=== PATIENT | female | born 1995 ===

== ENCOUNTER → 2022-01-13 16:32 | Outpatient (CLI) | payer SELFPAY ==
[2022-01-13 17:49] VITALS: BP 114/76
== END | disposition home or self-care (01) ==
LOC: TRG 16:32 → APU 16:33
PROVIDERS: ATTEND Obstetrics & Gynecology Gynecology
DX: Z34.93 Encounter for supervision of normal pregnancy, unspecified, third trimester (principal); Z3A.40 40 weeks gestation of pregnancy
CPT/HCPCS: 59025

== ENCOUNTER 2022-01-13 21:04 | Inpatient (IN) | payer SELFPAY ==
[2022-01-13] MEDS ORDERED: METHYLERGONOVINE MALEATE 0.2 MG/ML VIAL IM PRN (23:17)
[2022-01-13] MEDS ORDERED: LIDOCAINE (2%) 20 MG/1 ML VIAL 20 ML MDV INFILTRATI ONE (23:17)
[2022-01-13] MEDS ORDERED: ACETAMINOPHEN 325 MG TAB PO PRN (23:17)
[2022-01-13] MEDS ORDERED: CARBOPROST TROMETHAMINE 250 MCG/1 ML INJ IM PRN (23:17)
[2022-01-13] MEDS ORDERED: miSOPROStol 200 MCG TAB PR PRN (23:17)
[2022-01-13] MEDS ORDERED: fentaNYL 100 MCG/2 ML INJ IV PRN (23:17)
[2022-01-13] MEDS ORDERED: LOPERAMIDE 2 MG CAP PO PRN (23:17)
[2022-01-13] MEDS ORDERED: ePHEDrine SULFATE 50 MG/1 ML INJ IV PRN (23:17)
[2022-01-13] MEDS ORDERED: TERBUTALINE 1 MG/1 ML INJ SUB-Q PRN (23:17)
[2022-01-13] MEDS ORDERED: ONDANSETRON 4 MG/2 ML INJ IV PRN (23:17)
[2022-01-13] MEDS ORDERED: MINERAL OIL 30 ML ORAL LIQD PO PRN (23:17)
[2022-01-13] MEDS ORDERED: BUTORPHANOL 2 MG/1 ML INJ IV PRN (23:17)
[2022-01-13] MEDS ORDERED: OXYTOCIN 10 UNIT/1 ML INJ IM PRN (23:17)
[2022-01-13] MEDS ORDERED: OXYTOCIN DRIP 30 UNITS/500 ML BAG IV SCH ×2 (23:45)
--- NOTE | 2022-01-14 00:23 | History and Physical Report ---
History of Present Illness Date of examination: 01/13/22 Date of admission: 01/13/22 23:18 Chief complaint: Contractions History of present illness: 26-year-old at 40-1/7 weeks gestation presents to OB triage reporting regular and painful contractions occurring every 3 minutes. There is no vaginal bleeding. There is no leaking of fluid. There is good movement. Cervix was noted to be 5 cm dilated. The patient has a history of a previous delivery. She desires trial of labor after (TOLAC) to attempt a vaginal after (). According to the medical record, that delivery was performed in [place], and it appears that text from the operative report was reviewed and confirms a Pfannenstiel skin incision. Formal operative report is unavailable at this time. According to the medical record, it appears that the previous delivery was performed secondary to distress and preeclampsia with severe features. As such, it is reasonable to presume that the previous delivery was likely a low transverse uterine scar per guidelines from ACOG Practice Bulletin No. 205 (ACOG Practice Bulletin No. 205: Vaginal After Delivery. Obstetrics & Gynecology: May 2018 - Volume 133 - Issue 2 - p [id number]). The patient was counseled in great detail in accordance with the guidelines contained within ACOG Practice Bulletin No. 205 with regards to the risks, alternatives, and benefits of TOLAC. She understands the risk of uterine rupture, maternal , hemorrhage, possibility of emergent delivery, possibility of hysterectomy, and possibility of / . Voicing understanding of all this, she wishes to proceed with TOLAC and signed consent f orms. The patient is admitted to labor and delivery for TOLAC. Past History Past Surgical History: section Family/Genetic History: none Social history: no significant social history - Obstetrical History Expected Date of Delivery: 01/12/22 Actual Gestation: 40 Week(s) 2 Day(s) : 2 Para: 1 Hx # Term Pregnancies: 1 Number of Pregnancies: 0 Spontaneous Abortions: 0 Induced : 1 Number of Living Children: 1 Medications and Allergies Allergies Allergy/AdvReac Type Severity Reaction Status Date / Time No Known Allergies Allergy Verified 01/13/22 23:30 Active Meds: Active Medications Acetaminophen (Acetaminophen 325 Mg Tab) 650 mg PO Q4H PRN PRN Reason: Pain, Mild (1-3) Butorphanol Tartrate (Butorphanol 2 Mg/1 Ml Inj) 2 mg IV Q2H PRN PRN Reason: Pain , Severe (7-10) Carboprost Tromethamine (Carboprost Tromethamine 250 Mcg/1 Ml Inj) 250 mcg IM ONCE PRN PRN Reason: Uterine Bleeding Ephedrine Sulfate (Ephedrine Sulfate 50 Mg/1 Ml Inj) 10 mg IV Q2M PRN PRN Reason: Hypotension Fentanyl (Fentanyl 100 Mcg/2 Ml Inj) 100 mcg IV Q2H PRN PRN Reason: Pain,Severe (7-10) LABOR PAIN Oxytocin/Sodium Chloride (Pitocin/Ns 30 Unit/500ml) 30 units in 500 mls @ 2 mls/hr IV TITR AWA; Protocol Lactated Ringer's (Lactated Ringers) 1,000 mls @ 125 mls/hr IV DIRECT AWA Oxytocin/Sodium Chloride (Pitocin/Ns 30 Unit/500ml) 30 units in 500 mls @ 40 mls/hr IV TITR AWA; Protocol Loperamide HCl (Loperamide 2 Mg Cap) 2 mg PO ONCE PRN PRN Reason: give with Hemabate Methylergonovine Maleate (Methylergonovine Maleate 0.2 Mg/Ml Vial) 0.2 mg IM ONCE PRN PRN Reason: Uterine Bleeding Mineral Oil (Mineral Oil 30 Ml Oral Liqd) 30 ml PO QHS PRN PRN Reason: Constipation Misoprostol (Misoprostol 200 Mcg Tab) 800 mcg MN ONCE PRN PRN Reason: Uterine Bleeding Ondansetron HCl (Ondansetron 4 Mg/2 Ml Inj) 4 mg IV Q8H PRN PRN Reason: Nausea And Vomiting Oxytocin (Oxytocin 10 Unit/1 Ml Inj) 10 unit IM ONCE PRN PRN Reason: Uterine Bleeding Terbutaline Sulfate (Terbutaline 1 Mg/1 Ml Inj) 0.25 mg SUB-Q ONCE PRN PRN Reason: Hyperstimulation/Hypertonicity - Vital Signs Vital signs: Vital Signs Temp Resp Pulse Ox 99.9 F H 16 98 01/13/22 21:47 01/13/22 21:47 01/13/22 21:47 Temp Pulse Resp BP Pulse Ox 99.9 F H 92 H 17 109/72 97 01/13/22 21:47 01/14/22 00:17 01/13/22 23:59 01/13/22 23:58 01/14/22 00:17 - Physical Exam Breasts: Positive: normal Cardiovascular: Regular rate Lungs: Positive: Normal air movement Abdomen: Positive: soft Genitourinary (Female): Positive: normal external genitalia, normal perenium Vulva: both: normal Vagina: Positive: normal moisture Uterus: Positive: enlarged Adnexa: both: normal Anus/Rectum: Positive: normal perianal skin Extremities: Positive: normal Deep Tendon Reflex Grade: Normal +2 - Obstetrical FHR: category 1 Uterine Contraction Monitor Mode: External Cervical Dilatation: 5 Cervical Effacement Percentage: 70 station: -2 Uterine Contraction Frequency (min): 3 Uterine Contraction Pattern: Regular Results Result Diagrams: 01/13/22 01:02 All other labs normal. Ultrasound: report reviewed, image reviewed, other (OB Ultrasound Limited= SLIUP. Vertex. Anterior placenta. EFW= 2972 g (7th %-ile). GLENN= 4.2 cm.) Assessment and Plan - Patient Problems (1) 40 weeks gestation of Current Visit: Yes Status: Acute Plan to address problem: care is up-to-date at [facility]. The patient is GBS negative. (2) Postmaturity , 40-42 weeks gestation Current Visit: Yes Status: Acute Plan to address problem: The patient is admitted to labor and delivery for TOLAC. (3) Previous delivery affecting , antepartum Current Visit: Yes Status: Acute Plan to address problem: The patient has a history of a previous delivery. She desires trial of labor after (TOLAC) to attempt a vaginal after (). According to the medical record, that delivery was performed in [place], and it appears that text from the operative report was reviewed and confirms a Pfannenstiel skin incision. Formal operative report is unavailable at this time. According to the medical record, it appears that the previous delivery was performed secondary to distress and preeclampsia with severe features. As such, it is reasonable to presume that the previous delivery was likely a low transverse uterine scar per guidelines from ACOG Practice Bulletin No. 205 (ACOG Practice Bulletin No. 205: Vaginal After Delivery. Obstetrics & Gynecology: May 2018 - Volume 133 - Issue 2 - p [id number]). (4) Patient desires vaginal after section () Current Visit: Yes Status: Acute Plan to address problem: The patient was counseled in great detail in accordance with the guidelines contained within ACOG Practice Bulletin No. 205 with regards to the risks, alternatives, and benefits of TOLAC. She understands the risk of uterine rupture, maternal , hemorrhage, possibility of emergent delivery, possibility of hysterectomy, and possibility of / . Voicing understanding of all this, she wishes to proceed with TOLAC and signed consent forms. (5) IUGR (intrauterine growth restriction) Current Visit: Yes Status: Acute Plan to address problem: Estimated weight is in the 7th percentile. The patient is admitted to labor and delivery for TOLAC. (6) Oligohydramnios in [place] in third trimester Current Visit: Yes Status: Acute Plan to address problem: Amniotic fluid index is 4.2 cm. This fulfills the contemporary criteria for oligohydramnios. The patient is admitted to labor and delivery for TOLAC. (7) Active labor at term Current Visit: Yes Status: Acute Plan to address problem: The patient is admitted to labor and delivery for TOLAC.
--- NOTE | 2022-01-14 00:28 | Ultrasound Report ---
ULTRASOUND OBSTETRIC INDICATION / CLINICAL INFORMATION: EFW, GLENN, POSITION, PLACENTA LOCATION. - Clinical Gestational Age (GA) in weeks, days: 40, 1 TECHNIQUE: Transabdominal. COMPARISON: None available. FINDINGS: Single intrauterine . Biparietal Diameter = 9.0 cm = 36, 2 weeks, days Head Circumference = 32.9 cm = 37, 2 weeks, days Abdominal Circumference = 32.2 cm = 36, 1 weeks, days Femur Length = 7.3 cm = 37, 2 weeks, days Average Ultrasound Age (AUA) = 36, 5 weeks, days Heart Rate: 133 beats per minute. Estimated Weight in grams (if calculated): 2972 Estimated Weight Growth Percentile (if calculated): Position: cephalic. Cervix: Not well evaluated Placenta: anterior and free of the os. Amniotic Fluid Volume: normal Amniotic Fluid Index (GLENN) in cm (if calculated): Mildly decreased measuring 4.2 cm.. Maternal Adnexa: No significant abnormality. IMPRESSION: 1. Single, living intrauterine with estimated sonographic age of 36 weeks, 5 days. Of note, this is discordant from the clinical age of 40 weeks 1 day. 2. No acute sonographic process. 3. Low amniotic fluid index , which may be secondary to near term gestational age. True mild oligohyd ramnios cannot be excluded. 4. Cephalic position and intact anterior placenta. Signer Name: Jayme Fitch MD Signed: 01/14/2022 12:24 AM Workstation Name: [id number]
[2022-01-14 01:14] LABS: Hematocrit 38.6 % (30.3-42.9); Hemoglobin 12.9 gm/dl (10.1-14.3); Mean Corpuscular HGB Conc 33 % (30-34); Mean Corpuscular Volume 87 fl (79-97); Platelet Count 244 K/mm3 (140-440); Red Blood Count 4.45 M/mm3 (3.65-5.03); Red Cell Distribution Width 13.6 % (13.2-15.2)
[2022-01-14] MEDS ORDERED: fentaNYL-BUPIV 2 MCG/ML-0.125% 200 MCG/100 ML BAG EPIDURAL SCH (02:42)
[2022-01-14] MEDS ORDERED: NALOXONE 0.4 MG/1 ML INJ IV PRN (02:42)
[2022-01-14] MEDS ORDERED: ePHEDrine SULFATE 50 MG/1 ML INJ IV PRN (02:42)
--- NOTE | 2022-01-14 02:44 | Anesthesia Day of Surgery ---
Anesthesia Day of Surgery - Day of Surgery Patient Examined: Yes Patient H&P Reviewed: Yes Patient is NPO: Yes Beta Blockers: No Cardiac Clearance: No Pulmonary Clearance: No Chuck's Test: N/A
--- NOTE | 2022-01-14 02:44 | Anesthesia Consultation ---
Anesthesia Consult and Med Hx Date of service: 01/14/22 - Airway Anesthetic Teeth Evaluation: Good ROM Head & Neck: Adequate Mental/Hyoid Distance: Adequate Mallampati Class: Class II Intubation Access Assessment: Probably Good - Pulmonary Exam CTA: Yes - Cardiac Exam Cardiac Exam: RRR - Pre-Operative Health Status ASA Pre-Surgery Classification: ASA2 Proposed Anesthetic Plan: Epidural - Pulmonary Hx Smoking: No Hx Asthma: No Hx Respiratory Symptoms: No SOB: No COPD: No Home Oxygen Therapy: No Hx Pneumonia: No Hx Sleep Apnea: No - Cardiovascular System Hx Hypertension: Yes (2013) Hx Coronary Artery Disease: No Hx Heart Attack/AMI: No Hx Angina: No Hx Percutaneous Transluminal Coronary Angioplasty (PTCA): No Hx Cardia Arrhythmia: No Hx Pacemaker: No Hx Internal Defibrillator: No Hx Valvular Heart Disease: No Hx Heart Murmur: No Hx Peripheral Vascular Disease: No - Central Nervous System Hx Neuromuscular Disorder: No Hx Seizures: No CVA: No Hx Back Pain: No Hx Psychiatric Problems: No - Gastrointestinal Hx Ulcer: No Hx Gastroesophageal Reflux Disease: No - Endocrine Hx Renal Disease: No Hx End Stage Renal Disease: No Hx Cirrhosis: No Hx Liver Disease: No Hx Insulin Dependent Diabetes: No Hx Non-Insulin Dependent Diabetes: No Hx Thyroid Disease: No Hx Hypothyroidism: No Hx Hyperthyroidism: No - Hematic Hx Anemia: No Hx Sickle Cell Disease: No - Other Systems Hx Alcohol Use: Yes (SOCIALLY) Hx Substance Use: No Hx Cancer: No Hx Obesity: No
[2022-01-14] MEDS: LACTATED RINGERS 1,000 ML IV SCH ×2 (02:48→06:14)
--- NOTE | 2022-01-14 03:08 | Progress Note ---
Labor Epidural - Labor Epidural Start Time: 02:12 Stop Time: 02:19 Performed by:: TEODORA GARVIN Procedure: Epidural Requested for Labor Pain. H&P and PT Chart reviewed and consent obtained. Time out performed and the procedure was explained, all questions answered. Patient was placed in a sitting position with monitors applied. The PTs back was prepped and draped in usual sterile fashion. The Skin was localized with 3 mL of 1% lidocaine at L3-L4. A 17-gauge Touhy epidural needle was advanced to BENITA with saline at 7 cm and no blood/CSF was noted via epidural needle. Epidural catheter was advanced to 12 cm. There was negative aspiration for blood and CSF in the catheter and negative response to a test dose of 3 ml 1.5% lidocaine w/ Epi and a sterile dressing was applied Patient tolerated the procedure well and there were no immediate complications noted.
[2022-01-14] MEDS ORDERED: OXYTOCIN DRIP 30 UNITS/500 ML BAG IV SCH (06:00)
[2022-01-14] MEDS ORDERED: ACETAMINOPHEN 500 MG TAB PO NR (08:42)
--- NOTE | 2022-01-14 09:02 | Procedure Note ---
OB Delivery Note - Delivery Date of Delivery: 01/14/22 Surgeon: LORENA DIEHL Estimated blood loss: 500cc - Vaginal Delivery presentation: vertex Delivery position: OA Intrapartum events: other(please specify) (1.) 40 weeks, 2.) History of previous delivery, 3.) Labor, 4.) TOLAC, 5.) IUGR, 6.) Oligohydramnios.) Delivery induction: none Delivery augmentation: pitocin Delivery monitor: external FHT, external uterine, internal uterine Route of delivery: Delivery placenta: spontaneous Delivery cord: nuchal cord, 3 umbilical vessels Episiotomy: none Delivery laceration: 1st degree, other (First-degree perineal laceration, bilateral vaginal sidewall lacerations, left periurethral laceration.) Delivery repair: vicryl (All lacerations repaired with 2-0 Vicryl and 3-0 Vicryl) Anesthesia: local (Lidocaine 1% without epinephrine injected subcutaneously at the perineal body.), epidural - A at 1 minute: 8 at 5 minutes: 9 Infant Gender: Female (3030 g)
[2022-01-14] MEDS ORDERED: BENZOCAINE/MENTHOL 20/0.5% TOP SPRAY 56 GM TP PRN (09:30)
[2022-01-14] MEDS ORDERED: LANOLIN/ZINC/DIMETHICONE (LANSINOH) 7 GM TP PRN (09:30)
[2022-01-14] MEDS ORDERED: WITCH HAZEL/ GLYCERIN PAD TP PRN (09:30)
[2022-01-14] MEDS ORDERED: HYDROcodone/ACETAMINOPHEN 5-325 MG TAB PO PRN (10:00)
[2022-01-14] MEDS ORDERED: ACETAMINOPHEN 325 MG TAB PO PRN (12:00)
[2022-01-14] MEDS: IBUPROFEN 800 MG TAB PO SCH ×2 (12:19→18:33)
[2022-01-14] MEDS: PRENATAL VIT27-FE FUMARATE-FOLIC ACID VIT TAB PO SCH (12:19)
[2022-01-14] MEDS: DOCUSATE SODIUM 100 MG CAP PO SCH ×2 (12:20→22:40)
[2022-01-15] MEDS: IBUPROFEN 800 MG TAB PO SCH ×2 (02:21→12:00)
--- NOTE | 2022-01-15 06:00 | Post Anesthesia Evaluation ---
- Post Anesthesia Evaluation Patient Participated: No Airway Patent: Yes Stable Respiratory Function: Yes Nausea/Vomiting: No Temp > 96.8F: Yes Pain Manageable: Yes Adequeate Hydration: Yes Anesthesia Complications: No Block Receding Appropriately: Yes Patient on Ventilator: No
[2022-01-15] MEDS: PRENATAL VIT27-FE FUMARATE-FOLIC ACID VIT TAB PO SCH (12:00)
[2022-01-15] MEDS: DOCUSATE SODIUM 100 MG CAP PO SCH (12:00)
--- NOTE | 2022-01-15 13:23 | Progress Note ---
Assessment and Plan A: PP Day #1 Stable P: Follow Routine Orders D/C Home today per patient request RTO in 6 Weeks Subjective - Subjective Date of service: 01/15/22 Patient reports: appetite normal, voiding normally, pain well controlled, flat us, ambulating normally : doing well, bottle feeding Objective - Vital Signs Latest vital signs: Vital Signs Temp Pulse Resp BP BP Pulse Ox Pulse Ox 01/15/22 08:00 99 01/15/22 07:55 98.0 F 62 16 92/57 99 01/15/22 00:22 97.7 F 74 18 102/70 97 01/14/22 21:29 98.5 F 72 18 98/60 98 01/14/22 16:33 98.8 F 73 20 98/59 97 Intake and Output 01/14/22 01/15/22 01/15/22 22:59 06:59 14:59 Intake Total 360 720 Output Total 400 Balance 360 320 Intake: Oral 120 240 Intake, Free Water 240 480 Output: Urine 400 Indwelling Catheter 400 Other: Total, Intake Amount 120 240 Total, Output Amount 400 # Voids Indwelling Catheter 1 1 Void 1 # Bowel Movements 1 - Exam Breasts: Present: normal Cardiovascular: Present: Regular rate Lungs: Present: Clear to auscultation, Normal air movement Abdomen: Present: normal appearance, soft, normal bowel sounds Uterus: Present: normal, firm, fundal height below umbilicus Extremities: Present: normal
--- NOTE | 2022-01-15 13:24 | Discharge Summary ---
Providers - Providers Date of Admission: 01/13/22 23:18 Date of discharge: 01/15/22 Attending physician: LORENA DIEHL MD Primary care physician: LORENA DIEHL MD Hospitalization Reason for admission: active labor Delivery: Episiotomy: none Laceration: 1st degree Other procedures: none complications: none Discharge diagnosis: IUP at term delivered baby: female Condition at discharge: Good Disposition: 01 HOME / SELF CARE / HOMELESS Plan - Provider Discharge Summary Activity: routine, no sex for 6 weeks, no heavy lifting 4 weeks, no strenuous exercise Diet: routine Instructions: routine Additional instructions: [] Smoking cessation referral if applicable(refer to patient education folder for contact #) [] Refer to [facility]'s [facility] Booklet Call your doctor immediately for: * Fever > 100.5 * Heavy vaginal bleeding ( >1 pad per hour) * Severe persistent headache * Shortness of breath * Reddened, hot, painful area to leg or breast * Drainage or odor from incision. * Keep incision clean and dry at all times and follow doctor's instructions regarding bathing/showering - Follow up plan Follow up: LORENA DIEHL MD [Primary Care Provider] - 6 Weeks
[2022-01-15 17:30] VITALS: BP 102/66
[2022-01-15] MEDS ORDERED: MEASLES, MUMPS & RUBELLA 12,500 UNIT/0.5 ML VACCINE SUB-Q ONE (19:59)
[2022-01-16 08:04] LABS: Hematocrit 33.8 % (30.3-42.9); Hemoglobin 10.7 gm/dl (10.1-14.3); Mean Corpuscular HGB Conc 32 % (30-34); Mean Corpuscular Volume 91 fl (79-97); Platelet Count 207 K/mm3 (140-440); Red Blood Count 3.71 M/mm3 (3.65-5.03); Red Cell Distribution Width 14.9 % (13.2-15.2)
== END 2022-01-15 20:10 | disposition home or self-care (01) | DRG 806 ==
LOC: TRG 21:04 → APU 21:05 → TRG 23:17 → LD 23:18 → OB 01-14 10:02
PROVIDERS: ADMIT Obstetrics & Gynecology Gynecology; ATTEND Obstetrics & Gynecology Gynecology
PROC: 10E0XZZ Delivery of Products of Conception, External Approach (ICD-10-PCS; principal; 2022-01-14)
PROC: 0HQ9XZZ Repair Perineum Skin, External Approach (ICD-10-PCS; 2022-01-14)
PROC: 0UQMXZZ Repair Vulva, External Approach (ICD-10-PCS; 2022-01-14)
PROC: 3E0R3BZ Introduction of Anesthetic Agent into Spinal Canal, Percutaneous Approach (ICD-10-PCS; 2022-01-14)
PROC: 00HU33Z Insertion of Infusion Device into Spinal Canal, Percutaneous Approach (ICD-10-PCS; 2022-01-14)
PROC: 3E0134Z Introduction of Serum, Toxoid and Vaccine into Subcutaneous Tissue, Percutaneous Approach (ICD-10-PCS; 2022-01-15)
DX: O36.5930 Maternal care for other known or suspected poor fetal growth, third trimester, not applicable or unspecified (principal); O41.03X0 Oligohydramnios, third trimester, not applicable or unspecified; Z37.0 Single live birth; Z20.822 Contact with and (suspected) exposure to COVID-19; O34.211 Maternal care for low transverse scar from previous cesarean delivery; O16.4 Unspecified maternal hypertension, complicating childbirth; O69.81X0 Labor and delivery complicated by cord around neck, without compression, not applicable or unspecified; O70.0 First degree perineal laceration during delivery; O71.82 Other specified trauma to perineum and vulva; O48.0 Post-term pregnancy; Z3A.40 40 weeks gestation of pregnancy; Z23 Encounter for immunization
CPT/HCPCS: 36415; 76816; 85027; 86850; 86900; 86901; 90707; G0378; J3490; J2590; J7120; U0003